=== PATIENT | female | born 1940 | race Caucasian/White ===

== ENCOUNTER 2018-01-01 10:04 | Observation (INO) | payer OTHER ==
[2017-12-26 14:54] LABS: BASOPHILS % 0.4 % (0.0-1.0); EOSINOPHILS # (AUTO) 0.3 (0.0-0.4); EOSINOPHILS % 4.8 % (0.0-6.0); HEMATOCRIT 43.5 % (34.2-44.1); HEMOGLOBIN 14.3 g/dL (12.0-16.0); LYMPHOCYTES # (AUTO) 1.4 (1.0-3.2); LYMPHOCYTES % 21.1 % (18.0-39.1); MEAN CORPUSCULAR HEMOGLOBIN 29.2 pg (28-32); MEAN CORPUSCULAR HGB CONC 32.9 g/dL (31-35); MEAN CORPUSCULAR VOLUME 88.8 fL (81-99); MONOCYTES # (AUTO) 0.6 (0.2-0.8); MONOCYTES % 9.2 % (4.4-11.3); NEUTROPHILS # (AUTO) 4.3 (2.1-6.9); NEUTROPHILS % 64.2 % (38.7-80.0); PLATELET COUNT 221 x10e3/uL (140-360); RED CELL DISTRIBUTION WIDTH 13.2 % (11.7-14.4)
--- NOTE | 2017-12-26 15:05 | Diagnostic Imaging Report ---
EXAMINATION: CHEST 2 VIEWS INDICATION: \S\PER PROCOTOL \S\[id number] \S\1410 \S\PRE ADMIT COMPARISON: None FINDINGS: PA and lateral views TUBES and LINES: None. LUNGS: Limited by body habitus and low lung volumes. Minimal left basilar subsegmental atelectasis. There is no evidence of pneumonia or pulmonary edema. PLEURA: No pleural effusion or pneumothorax. HEART AND MEDIASTINUM: The cardiomediastinal silhouette is unremarkable. Aorta is calcified and tortuous. BONES AND SOFT TISSUES: No acute osseous lesion. Degenerative changes of spine. Soft tissues are unremarkable. UPPER ABDOMEN: No free air under the diaphragm. IMPRESSION: Limited as above. No definite focal consolidation. Signed by: Dr. Winston Delaney MD on 12/26/2017 3:01 PM
[~2018-01-01] VITALS: Ht 162.6 cm; Wt 71.2 kg
[~2018-01-01 10:04] MED LIST: ALENDRONATE SOD70 MG PEG; CLONIDINE HCL0.2 MG PO; GABAPENTIN400 MG PO; MELOXICAM7.5 MG PO; PANTOPRAZOLE SO40 MG PO; SIMVASTATIN20 MG PO
[2018-01-01] MEDS ORDERED: ESTROGENS CONJUGATED VAGINAL CR 45 GM TUBE PV ONE (12:03)
[2018-01-01] MEDS ORDERED: BUPIVACAINE 0.25%/EPI 30ML SDV INJ ONE ×2 (12:03→13:27)
[2018-01-01] MEDS ORDERED: DOCUSATE SODIUM 100 MG CAP PO PRN (13:45)
[2018-01-01] MEDS ORDERED: ONDANSETRON HCL INJ 2 MG/ML VIAL IV PRN (13:45)
[2018-01-01] MEDS ORDERED: MEPERIDINE HCL INJ 25 MG/ML VIAL IV PRN (13:45)
[2018-01-01] MEDS ORDERED: DIPHENHYDRAMINE HCL 25 MG CAP PO PRN (13:45)
[2018-01-01] MEDS ORDERED: ACETAMINOPHEN 325 MG TAB PO PRN (13:45)
[2018-01-01 15:23] VITALS: BP 149/63
[2018-01-01 15:25] VITALS: BP 149/63
[2018-01-01] MEDS: LACTATED RINGER'S 1,000 ML IV SCH ×2 (15:35→22:11)
--- NOTE | 2018-01-01 16:12 | Operative Report ---
DATE OF PROCEDURE: PREOPERATIVE DIAGNOSIS: Pelvic organ prolapse. POSTOPERATIVE DIAGNOSIS: Pelvic organ prolapse. PROCEDURES 1. Anterior and posterior repair. 2. Sacrospinous colpopexy. COMPLICATIONS: None. ESTIMATED BLOOD LOSS: 20 mL. PROCEDURE IN DETAIL: Patient was taken to OR. General anesthesia was placed. She was prepped and draped in normal sterile fashion and placed in dorsal lithotomy position. Two Allis clamps were applied at the vagina and close to the vault and subvaginal tissue anteriorly was injected with Marcaine with epinephrine 0.25%, 25 mL was injected. Following this, a transverse skin incision at the vault between the 2 Allis clamp was made with the scalpel and vagina anteriorly was dissected off the bladder using Metzenbaum scissors and using the push-spread technique, anterior wall of the vaginal was then opened in the midline using the same instrument and 2 flaps of the vagina were dissected off the underlying bladder using both sharp and blunt dissection. Following this, index finger was used to penetrate the pelvic fascia around the inferior pubic ramus. The same was repeated on the other side. The ischial spine and the sacrospinous ligaments were palpated and using the Capio and needle moura, Vicryl suture was passed through the sacrospinous ligament about 1.5 cm medial to the ischial spine and the other end was hitched to the vaginal vault. Same was repeated on the other side. Excess vaginal skin was trimmed off using curved Best scissors. Pursestring suture of Catgut 3-0 was placed on the bladder raymond and the pubocervical ligament was approximated using Vicryl 0 sutures. Two sutures were used. Vagina was approximated using Vicryl 2-0 continuous stitch. Following this, attention was made to the posterior wall where 2 Allis clamps were applied at the mucocutaneous junction and the skin in between the 2 Allis clamp was excised using curved Best scissors. Vagina was dissected off the perineum using Metzenbaum scissors and the vagina was opened in the midline using the same instruments. Two flaps of the vagina were dissected off the rectum using both sharp and blunt dissection. The levator ani on sides were approximated using Vicryl 0 suture. Excess vaginal skin was trimmed off using curved Best scissors and the vagina was closed with interlocking sutures of Vicryl 0. Vaginal pack was Carrasquillo catheter were placed inside the bladder. Patient tolerated the procedure well. Lap, instrument, and needle counts were correct x2 at the end of the procedure. Job#: [id number]
[2018-01-01] MEDS ORDERED: CLONIDINE HCL 0.2 MG TAB PO SCH (17:00)
[2018-01-01] MEDS ORDERED: MIDAZOLAM HCL 2 MG/2 ML VIAL ONE (17:52)
[2018-01-01] MEDS ORDERED: FENTANYL CITRATE/PF 100MCG/2 ML INJ ONE (17:52)
[2018-01-01] MEDS ORDERED: DEXAMETHASONE SOD PHOS INJ 4 MG/ML VIAL ONE (18:50)
[2018-01-01] MEDS ORDERED: ONDANSETRON HCL INJ 2 MG/ML VIAL ONE (18:50)
[2018-01-01] MEDS ORDERED: SEVOFLURANE INHAL SOLN 250 ML PEN BTL ONE (18:50)
[2018-01-01] MEDS ORDERED: ACETAMINOPHEN 1000 MG/100 ML IV ONE (18:50)
[2018-01-01] MEDS ORDERED: LIDOCAINE HCL 2% LOCAL INJ 5 ML SDV VIAL INJ ONE (18:50)
[2018-01-01] MEDS ORDERED: PROPOFOL IV EMULSION 10 MG/ML 20 ML VIAL ONE (18:50)
[2018-01-01 20:00] VITALS: BP 124/58
[2018-01-01 20:14] VITALS: BP 149/63
[2018-01-01] MEDS: HYDROCODONE/APAP 5MG-325MG TAB PO PRN (20:19)
[2018-01-01] MEDS: CLONIDINE HCL 0.2 MG TAB PO SCH (21:00)
[2018-01-01] MEDS ORDERED: SIMVASTATIN 20 MG TAB PO SCH (21:00)
[2018-01-01 21:08] VITALS: BP 124/58
[2018-01-02] VITALS: BP 117/56
[2018-01-02 04:00] VITALS: BP 162/70
[2018-01-02 05:41] LABS: BASOPHILS % 0.1 % (0.0-1.0); HEMOGLOBIN 13.3 g/dL (12.0-16.0); LYMPHOCYTES % 7.4 % (18.0-39.1); MEAN CORPUSCULAR HEMOGLOBIN 29.4 pg (28-32); MEAN CORPUSCULAR HGB CONC 33.3 g/dL (31-35); MEAN CORPUSCULAR VOLUME 88.3 fL (81-99); MONOCYTES # (AUTO) 0.7 (0.2-0.8); MONOCYTES % 4.9 % (4.4-11.3); NEUTROPHILS # (AUTO) 11.7 (2.1-6.9); NEUTROPHILS % 87.1 % (38.7-80.0); PLATELET COUNT 234 x10e3/uL (140-360); RED BLOOD COUNT 4.53 x10e6/uL (3.6-5.1); RED CELL DISTRIBUTION WIDTH 12.9 % (11.7-14.4)
[2018-01-02] MEDS: LACTATED RINGER'S 1,000 ML IV SCH (05:45)
[2018-01-02] MEDS: HYDROCODONE/APAP 5MG-325MG TAB PO PRN (07:37)
[2018-01-02 08:31] VITALS: BP 135/63
[2018-01-02] MEDS ORDERED: PANTOPRAZOLE SOD 40 MG TABEC PO SCH (09:00)
[2018-01-02] MEDS ORDERED: MELOXICAM 7.5 MG TAB PO SCH (09:00)
[2018-01-02] MEDS: GABAPENTIN 400 MG CAP PO SCH ×2 (09:00→09:07)
[2018-01-02] MEDS: CLONIDINE HCL 0.2 MG TAB PO SCH (09:07)
[2018-01-02] MEDS ORDERED: TYLENOL WITH C1 EACH PO (10:07)
== END 2018-01-02 10:27 | disposition home or self-care (01) ==
LOC: OR 10:04 → PACU V 13:49 → IMCU 15:09
PROVIDERS: ADMIT Obstetrics & Gynecology; ATTEND Obstetrics & Gynecology
DX: N81.89 Other female genital prolapse (principal); I10 Essential (primary) hypertension; E78.5 Hyperlipidemia, unspecified; K21.9 Gastro-esophageal reflux disease without esophagitis
CPT/HCPCS: 36415 ×2; 57282; 71046; 85025 ×2; 93005; G0378 ×2; J1100; J2001; J2175; J2250; J2405; J7120; S0164